=== PATIENT | male | born 1965 | race American Indian/Alaskan Native ===

== ENCOUNTER 2016-10-14 21:04 | Emergency (ER) | payer OTHER ==
[2016-10-14 21:20] VITALS: BP 143/94
[2016-10-14] MEDS ORDERED: TYLENOL PO ONE (21:52)
[2016-10-14] MEDS ORDERED: CLEOCIN IV ONE (21:52)
[2016-10-14] MEDS ORDERED: NACL 0.9% 1000 ML 1,000 ML IV ONE (21:52)
[2016-10-14] MEDS ORDERED: TORADOL IV ONE (21:52)
[2016-10-14] MEDS ORDERED: DECADRON IV ONE (21:52)
--- NOTE | 2016-10-14 21:52 | Emergency Department Report ---
HPI - General Chief Complaint: Allergic Reaction Time Seen by Provider: 10/14/16 21:46 - HPI HPI: This is a pleasant 51-year-old gentleman who indicates over the last approximately 24 hours he's had left-sided throat pain and difficulty swallowing. He indicates that he actually saw his dentist on Sunday for routine appointment. He was noted to have some upper gums swelling. He was given chlorhexidine rinse and spit for this. He indicates he has been using it as prescribed. Again he noted last night some increased discomfort in his left side of his throat and now extent the left lower jaw region as well. He was unaware that he had fever. He works night shifts and did work last night. He states he has had some fatigue. He indicates he is able to swallow secretions but is uncomfortable so he is choosing to spit them in a cup. Has sensation of feeling of increased edema is throughout however. He is not currently on any antibiotics. He denies prior history of this. ED Past Medical Hx - Past Medical History Previous Medical History?: No - Social History Smoking Status: Unknown if ever smoked - Medications Home Medications: Home Medications Medication Instructions Recorded Confirmed Last Taken Type Clindamycin [Clindamycin CAP] 300 mg PO Q6H #40 capsule 10/15/16 Unknown Rx ED Review of Systems ROS: Stated complaint: THROAT SWELLING Other details as noted in HPI Comment: All other systems reviewed and negative Constitutional: malaise. denies: chills, fever Eyes: denies: eye pain, eye discharge, vision change ENT: throat pain. denies: ear pain Respiratory: denies: cough, shortness of breath, wheezing Cardiovascular: denies: chest pain, palpitations Endocrine: no symptoms reported Gastrointestinal: denies: abdominal pain, nausea, diarrhea Genitourinary: denies: urgency, dysuria Musculoskeletal: denies: back pain, joint swelling, arthralgia Skin: denies: rash, lesions Neurological: denies: headache, weakness, paresthesias Psychiatric: denies: anxiety, depression Hematological/Lymphatic: denies: easy bleeding, easy bruising Physical Exam - Physical Exam Vital Signs: Vital Signs 10/14/16 21:15 Temperature 101.1 F H Pulse Rate 103 H Respiratory 18 Rate Blood Pressure 143/94 O2 Sat by Pulse 96 Oximetry General: General somewhat uncomfortable appearing noted to be febrile as well. Otherwise has accompanied his hand that he is spitting secretions. HEENT demonstrates no obvious trauma. Tympanic membranes bilaterally are unremarkable. Facial palpation is unremarkable. Oral examination temperature is moist mucous membranes. There is significant left tonsillar edema and erythema appreciated. No exudates are noted. No uvula involvement is noted. Neck examination demonstrates left-sided moderate anterior and mild submandibular adenopathy. No meningismus is noted. No tracheal deviation is appreciated. Chest is clear to auscultation with good air movement heart is regular no murmur or gallop noted abdomen is soft nontender no organomegaly no organomegaly is noted. Neck demonstrates no midline tenderness no paracervical tenderness or Lumbar tenderness is appreciated either. Extremities demonstrate equal distal pedal pulses throughout no pathologic edema is noted. Psych alert from here answering questions appropriately neurologically moving all extremities without difficulty speaking in a normal rate and tone. ED Course Vital Signs 10/14/16 21:15 Temperature 101.1 F H Pulse Rate 103 H Respiratory 18 Rate Blood Pressure 143/94 O2 Sat by Pulse 96 Oximetry - Reevaluation(s) Reevaluation #1: 10/15/16 00:05 Lab studies are noted. CT study is noted as well. No obvious abscess or phlegmon is appreciated this time. I did give patient IV antibiotics here. He did defervesce here as well. He is able to tolerate oral intake. I feel he is appropriate appropriate for home. I did give him strict instructions return if there is any acute worsening. He did get an injection of dexamethasone as well. ED Medical Decision Making - Lab Data Result diagrams: 10/14/16 22:13 10/14/16 22:13 - Radiology Data Radiology results: report reviewed, image reviewed No abscess or mass noted. There is slight swelling of the left tonsillar pillar. Critical care attestation.: If time is entered above; I have spent that time in minutes in the direct care of this critically ill patient, excluding procedure time. ED Disposition Clinical Impression: Acute tonsillitis Qualifiers: Pharyngitis/tonsillitis etiology: unspecified etiology Qualified Code(s): J03.90 - Acute tonsillitis, unspecified Disposition: DISCHARGED TO HOME OR SELFCARE Is pt being admited?: No Does the pt Need Aspirin: No Condition: Stable Instructions: Tonsillitis (ED) Additional Instructions: Take Tylenol as needed for fever. Consider dural lozenges or sprays as needed for throat discomfort. Drink plenty of fluids. Continue with chlorhexidine rinse and spit. Prescriptions: Clindamycin [Clindamycin CAP] 300 mg PO Q6H #40 capsule Forms: Work/School Release Form(ED) Time of Disposition: 00:03
[2016-10-14] MEDS ORDERED: NACL ONE (21:53)
[2016-10-14 22:48] LABS: Anion Gap 18 mmol/L; Blood Urea Nitrogen 12 mg/dL (9-20); Calcium 9.3 mg/dL (8.4-10.2); Carbon Dioxide 25 mmol/L (22-30); Chloride 102.5 mmol/L (98-107); Glucose 109 mg/dL (75-100); Potassium 4.5 mmol/L (3.6-5.0); Sodium 141 mmol/L (137-145)
[2016-10-14 22:54] LABS: Basophils % (Auto) 0.6 % (0.0-1.8); Eosinophils % (Auto) 0.4 % (0.0-4.3); Hematocrit 44.3 % (35.5-45.6); Hemoglobin 14.9 gm/dl (11.8-15.2); Mean Corpuscular HGB Conc 34 % (32-34); Mean Corpuscular Hemoglobin 28 pg (28-32); Mean Corpuscular Volume 83 fl (84-94); Platelet Count 172 K/mm3 (140-440); Red Blood Count 5.35 M/mm3 (3.65-5.03); Red Cell Distribution Width 15.6 % (13.2-15.2); White Blood Count 10.5 K/mm3 (4.5-11.0)
--- NOTE | 2016-10-14 23:35 | Cat Scan Report ---
FINAL REPORT PROCEDURE: CT NECK W CON TECHNIQUE: Computerized axial tomography of the soft tissue neck was performed following the IV injection of iodinated nonionic contrast. HISTORY: L tonsilar abscess? COMPARISON: No prior studies are available for comparison. FINDINGS: Left tonsillar pillar is slightly enlarged. There is no mass or abscess. There is no airway compromise. Skull and scalp: Normal. Paranasal sinuses: Normal. Nasopharynx: Normal . Oral cavity: Normal . Epiglottis/vallecula: Normal . Larynx/pyriform sinuses: Normal . Thyroid gland: Normal . Lymph nodes: There are borderline enlarged submandibular and cervical lymph nodes. These are nonspecific and could be reactive.. Salivary glands: Normal . Upper thorax: Normal . IMPRESSION: There is no abscess or mass. There is slight swelling of the left tonsillar pillar.
== END 2016-10-15 01:07 | disposition home or self-care (01) ==
LOC: ED 21:04
DX: J03.90 Acute tonsillitis, unspecified (principal)
CPT/HCPCS: 36415; 70491; 80048; 85025; 96361; 96374; 96375; 99284; J1100; J1885; J7030; Q9967

== ENCOUNTER 2017-03-02 18:41 | Emergency (ER) | payer OTHER ==
--- NOTE | 2017-03-02 22:51 | Emergency Department Report ---
ED Extremity Problem HPI - General Chief complaint: Extremity Injury, Upper Stated complaint: LEFT HAND PAIN Time Seen by Provider: 03/02/17 22:34 Source: patient, family Mode of arrival: Ambulatory Limitations: No Limitations - History of Present Illness Initial comments: Patient reports that he is having left elbow pain that radiated down his left hand. He said it started on Sunday. Patient said that he thinks his gout flare up. He denies any injury. Patient said that he has been eating and food that he is not supposed to eat such his red meat and drinking beer. He said the pain is throbbing to his elbow and its radiated down to his hand. Pain is 10 out of 10. He states that he took [id number] medication but it's not helping. He said he had similar pain but got flare up in the past and he had gout flareup in all his joints in the past. Denies any fever or chills or numbness or tingling to extremities. Denies any loss of sensation to his extremities. Patient medical history is gout and he said he is not on any medication. He does have a primary care physician whom he has not seen in a while. Pain is worse with movement and touch better with rest. MD Complaint: extremity pain, joint swelling, joint paint Onset/Timin -: days(s) Location: left, upper extremity, elbow (radiating down to left hand) History of Same: Yes -: Yes arthralgia, No fever, No associated dyspnea, No associated chest pain Radiation: distal Severity scale (0 -10): 10 Quality: other (Throbbing) Consistency: constant Improves with: immobilization, rest Worsens with: palpation Associated Symptoms: arthralgias. denies: chest pain, shortness of breath, fever, myalgias, rash - Related Data Previous Rx's Medication Instructions Recorded Last Taken Type Clindamycin [Clindamycin CAP] 300 mg PO Q6H #40 capsule 10/15/16 Unknown Rx HYDROcodone/APAP 5-325 [[place] 1 each PO Q6HR PRN #12 tablet 03/02/17 Unknown Rx 5/325] Naproxen [Naprosyn TAB] 500 mg PO BID PRN #12 tablet 03/02/17 Unknown Rx methylPREDNISolone [Medrol] 4 mg PO QAM #1 tab.ds.pk 03/02/17 Unknown Rx Allergies Allergy/AdvReac Type Severity Reaction Status Date / Time No Known Allergies Allergy Verified 03/02/17 18:45 ED Review of Systems ROS: Stated complaint: LEFT HAND PAIN Other details as noted in HPI Comment: All other systems reviewed and negative Constitutional: no symptoms reported Respiratory: no symptoms reported Cardiovascular: denies: chest pain, palpitations, edema, syncope Gastrointestinal: denies: abdominal pain, nausea, vomiting, diarrhea, constipation Musculoskeletal: joint swelling, arthralgia. denies: back pain, myalgia Skin: denies: rash Neurological: denies: headache, weakness, numbness, paresthesias, confusion, abnormal gait, vertigo ED Past Medical Hx - Past Medical History Previous Medical History?: Yes Additional medical history: gout - Surgical History Past Surgical History?: No - Family History Family history: hypertension - Social History Smoking Status: Never Smoker Substance Use Type: Alcohol Other Social History: Single - Medications Home Medications: Home Medications Medication Instructions Recorded Confirmed Last Taken Type Clindamycin [Clindamycin CAP] 300 mg PO Q6H #40 capsule 10/15/16 Unknown Rx HYDROcodone/APAP 5-325 [[place] 1 each PO Q6HR PRN #12 tablet 03/02/17 Unknown Rx 5/325] Naproxen [Naprosyn TAB] 500 mg PO BID PRN #12 tablet 03/02/17 Unknown Rx methylPREDNISolone [Medrol] 4 mg PO QAM #1 tab.ds.pk 03/02/17 Unknown Rx ED Physical Exam - General Limitations: No Limitations General appearance: alert, in no apparent distress - Head Head exam: Present: atraumatic, normocephalic, normal inspection - Eye Eye exam: Present: normal appearance, PERRL, EOMI Pupils: Present: normal accommodation - Neck Neck exam: Present: normal inspection, full ROM. Absent: tenderness, meningismus, lymphadenopathy - Respiratory Respiratory exam: Present: normal lung sounds bilaterally. Absent: respiratory distress, chest wall tenderness - Cardiovascular Cardiovascular Exam: Present: regular rate, normal rhythm, normal heart sounds. Absent: systolic murmur, diastolic murmur - GI/Abdominal GI/Abdominal exam: Present: soft, normal bowel sounds. Absent: distended, tenderness, guarding, rebound, rigid - Extremities Exam Extremities exam: Present: full ROM, tenderness (left elbow), normal capillary refill, joint swelling (left elbow and left hand), other (no clubbing or cyanosis. +2 pulses to all extremities. No neurovascular compromise to extremities). Absent: normal inspection, pedal edema, calf tenderness - Expanded Upper Extremity Exam Left General: Absent: normal inspection, abrasion, nail injury (#), foreign body, amputation, avulsion Shoulder Exam: Present: normal inspection, full ROM. Absent: tenderness, abrasion, laceration, ecchymosis, deformity, crepidus, dislocation, erythema, tenderness over AC joint Upper Arm exam: Present: normal inspection, full ROM. Absent: tenderness, swelling, abrasion, laceration, ecchymosis, deformity, crepidus, dislocation, erythema Elbow exam: Present: full ROM (patient with full range of motion to left elbow but reports painful with flexion and extension), tenderness, swelling. Absent: normal inspection, abrasion, laceration, ecchymosis, deformity, crepidus, dislocation, erythema, effusion, pain w/ pronation/supination, tenderness over radial head Forearm Wrist exam: Present: normal inspection, full ROM. Absent: tenderness, swelling, abrasion, laceration, ecchymosis, deformity, crepidus, dislocation, erythema, tenderness over anatomical snuff box, pain with axial thumb loading Hand Wrist exam: Present: full ROM, tenderness (mild tenderness to the left dorsal aspect of hand), swelling (mild swelling to left hand). Absent: normal inspection, abrasion, laceration, ecchymosis, deformity, crepidus, dislocation, erythema, amputation, nail avulsion, subungual hematoma Neuro motor exam: Present: wrist extension intact, thumb opposition intact, thumb IP flexion intact, thumb adduction intact, fingers 2-5 abduction intact Neurosensory exam: Present: 2-point discrimination, radial nerve intact, ulnar nerve intact, median nerve intact Vascular: Present: normal capillary refill, radial pulse, brachial pulse, ulnar pulse. Absent: vascular compromise, Pallo, pulse deficit radial art, pulse deficit ulnar art, pulse deficit brachial art - Back Exam Back exam: Present: normal inspection, full ROM. Absent: tenderness, CVA tenderness (R), CVA tenderness (L), muscle spasm, paraspinal tenderness, vertebral tenderness, rash noted - Neurological Exam Neurological exam: Present: alert, oriented X3, normal gait, reflexes normal. Absent: motor sensory deficit - Psychiatric Psychiatric exam: Present: normal affect, normal mood - Skin Skin exam: Present: warm, dry, intact, normal color. Absent: rash, erythema ED Course Vital Signs 03/02/17 18:45 Temperature 98.4 F Pulse Rate 74 Respiratory 18 Rate Blood Pressure 163/89 O2 Sat by Pulse 97 Oximetry - Reevaluation(s) Reevaluation #1: 03/02/17 23:31 Pt with gout flareup and he received Toradol 60 mg IM, Decadron 10 mg IM and Percocet 5/325 mg 2 tablets by mouth in emergency room which relieved his pain. 03/02/17 23:31 ED Medical Decision Making - Medical Decision Making ED course: Patient with gout flareup that started 4 days ago after eating red meat and drinking beer. Patient had similar episodes several times to multiple joints. Physical findings for swelling to left elbow with tenderness to palpate in painful with flexion and extension. He also has some swelling to his left hand. Patient is neurovascular intact with normal pulses to extremities. Pt has gout but is not taking any medication for gout and is noncompliant with diet for gout prevention. She was given Percocet 5/325 2 tablets by mouth, Toradol 60 mg IM and Decadron 10 mg IM and emergency room for treatment of acute gout and this relieved this pain down to 2 out of 10. Constipation diagnosis and treatment plan and remind them of diet that is low in Purine. He voiced understanding and discharged home with his family in stable condition with prescription for Collins, naproxen and Medrol Dosepak. Critical care attestation.: If time is entered above; I have spent that time in minutes in the direct care of this critically ill patient, excluding procedure time. ED Disposition Clinical Impression: Arthralgia of multiple sites Acute gout Qualifiers: Gout site: elbow Gout etiology: unspecified cause Laterality: left Qualified Code(s): M10.9 - Gout, unspecified Disposition: - TO HOME OR SELFCARE Is pt being admited?: No Does the pt Need Aspirin: No Condition: Stable Instructions: Acute Gouty Arthritis (ED), Low Purine Diet (ED), Arthralgia (ED) Additional Instructions: Please see discharge instruction on low purine food to prevent gout flare up. Please state medication as prescribed. Do not take Collins while driving or operating heavy machinery as this medication causes drowsiness See your primary care physician in 3-5 days Prescriptions: HYDROcodone/APAP 5-325 [Collins 5/325] 1 each PO Q6HR PRN #12 tablet PRN Reason: Pain methylPREDNISolone [Medrol] 4 mg PO QAM #1 tab.ds.pk Naproxen [Naprosyn TAB] 500 mg PO BID PRN #12 tablet PRN Reason: Pain Referrals: PRIMARY CARE, [Primary Care Provider] - 03/05/17 Forms: Accompanied Note, Work/School Release Form(ED)
[2017-03-02] MEDS ORDERED: PERCOCET 5/325 PO ONE (22:53)
[2017-03-02] MEDS ORDERED: DECADRON IM ONE (22:53)
[2017-03-02] MEDS ORDERED: TORADOL IM ONE (22:53)
[2017-03-03 00:06] VITALS: BP 127/82
== END 2017-03-03 00:06 | disposition home or self-care (01) ==
LOC: ED 18:41
DX: M10.9 Gout, unspecified (principal); M25.50 Pain in unspecified joint
CPT/HCPCS: 96372; 99282; J1100; J1885

== ENCOUNTER 2017-03-12 04:13 | Emergency (ER) | payer OTHER ==
[2017-03-12 05:05] VITALS: BP 155/96
[2017-03-12] MEDS ORDERED: MOTRIN PO ONE (05:23)
--- NOTE | 2017-03-12 05:52 | XRay Report ---
FINAL REPORT EXAM: XR WRIST 2V LT HISTORY: left wrist swelling COMPARISONS: None. FINDINGS: AP and lateral views left wrist Soft tissue swelling about the left carpus. No bone lesion, periosteal reaction, or fracture. No deformity or gross malalignment. IMPRESSION: Soft tissue swelling about the left wrist without evident fracture or gross malalignment. Consider additional imaging for worsening/persistent symptoms.
[2017-03-12] MEDS ORDERED: TORADOL IM ONE (10:59)
--- NOTE | 2017-03-12 11:06 | Emergency Department Report ---
Upper Extremity - HPI Chief Complaint: Extremity Injury, Upper Stated Complaint: LEFT WRIST PAIN Time Seen by Provider: 03/12/17 10:40 Upper Extremity: Left Wrist, Left Hand Occurred When: >5 Days Mechanism: Other (known to have guoty arthritis) Severity: moderate Symptoms: Yes Pain with Movement, Yes Limited Range of Movement, Yes Weakness, Yes Swelling, No Deformity, No Numbness, No Bruising/Ecchymosis, No Laceration or Abrasion Other History: Pt has used Motrin with out any relief of his symptoms ED Review of Systems ROS: Stated complaint: LEFT WRIST PAIN Other details as noted in HPI Comment: All other systems reviewed and negative Constitutional: denies: chills, diaphoresis, fever, malaise Eyes: denies: eye pain, eye discharge ENT: denies: ear pain, throat pain, dental pain, hearing loss, epistaxis, congestion Respiratory: denies: no symptoms reported, cough, shortness of breath, SOB with exertion Cardiovascular: denies: chest pain, palpitations, dyspnea on exertion, edema, syncope Endocrine: no symptoms reported Gastrointestinal: denies: abdominal pain, nausea, vomiting, diarrhea, hematemesis, melena Genitourinary: denies: dysuria, frequency, hematuria Musculoskeletal: joint swelling (left wrist joint and left hand), arthralgia Skin: denies: lesions, pruritus Neurological: denies: headache, weakness, numbness, paresthesias, confusion ED Past Medical Hx - Past Medical History Additional medical history: gout - Surgical History Past Surgical History?: No - Social History Smoking Status: Never Smoker Substance Use Type: None - Medications Home Medications: Home Medications Medication Instructions Recorded Confirmed Last Taken Type Clindamycin [Clindamycin CAP] 300 mg PO Q6H #40 capsule 10/15/16 Unknown Rx HYDROcodone/APAP 5-325 [[place] 1 each PO Q6HR PRN #12 tablet 03/02/17 Unknown Rx 5/325] Naproxen [Naprosyn TAB] 500 mg PO BID PRN #12 tablet 03/02/17 Unknown Rx methylPREDNISolone [Medrol] 4 mg PO QAM #1 tab.ds.pk 03/02/17 Unknown Rx Colchicine 0.6 mg PO BID #14 tablet 03/12/17 Unknown Rx Ibuprofen [Motrin 800 MG tab] 800 mg PO Q8HR PRN #30 tablet 03/12/17 Unknown Rx methylPREDNISolone [Medrol] 4 mg PO DAILY #1 packet 03/12/17 Unknown Rx Upper Extremity Exam - Exam General: Vital signs noted.. Alert and acting appropriately. This patient is in mild to moderate distress Head and Torso: No HEENT Abnormality, No Neck Tenderness, No Chest/Lungs Abnormality, No Abdominal Tenderness, No Back Tenderness Shoulder Exam: No Shoulder Tenderness, No Clavicle Tenderness, No Normal Range of Motion in Shoulder, No Shoulder Deformity, No AC Joint Tenderness Arm Exam: No Arm/Humerus Tenderness, No Arm Deformity Elbow: No Elbow Tenderness, No Normal Range of Motion in Elbow, No Elbow Deformity Forearm: No Forearm Tenderness, No Forearm Deformity, No Pain with Pronation, No Pain with Supination Wrist: Yes Wrist Tenderness (left wrist), Yes Snuffbox Tenderness, Yes Pain with Axial Thumb Compression, No Normal ROM in Wrist, No Wrist Deformity Hand: Yes Hand Tenderness (dorsum of left hand), No Hand Deformity, No Digit Tenderness, No Normal ROM in Digit(s), No Digit(s) Deformity CMS Exam: Yes Normal Distal Pulses, Yes Normal Capillary Refill, Yes Normal Distal Sensation, No Broken Skin ED Course Vital Signs 03/12/17 05:04 Temperature 98.1 F Pulse Rate 74 Respiratory 18 Rate Blood Pressure 155/96 O2 Sat by Pulse 98 Oximetry - Reevaluation(s) Reevaluation #1: 03/12/17 11:28 slightly improved Critical Care Time: No Critical care attestation.: If time is entered above; I have spent that time in minutes in the direct care of this critically ill patient, excluding procedure time. ED Disposition Clinical Impression: Gouty arthritis Disposition: TO HOME OR SELFCARE Is pt being admited?: No Does the pt Need Aspirin: No Condition: Stable Instructions: Acute Gouty Arthritis (ED) Additional Instructions: Follow up with your PCP in 2-3 days Prescriptions: Colchicine 0.6 mg PO BID #14 tablet Ibuprofen [Motrin 800 MG tab] 800 mg PO Q8HR PRN #30 tablet PRN Reason: Pain methylPREDNISolone [Medrol] 4 mg PO DAILY #1 packet Referrals: PRIMARY CARE, [Primary Care Provider] - 3-5 Days BENNIE KIM MD [Staff Physician] - 3-5 Days (Call office for an appointment) Time of Disposition: 11:30
[2017-03-12] MEDS ORDERED: COLCRYS PO ONE (11:30)
== END 2017-03-12 12:00 | disposition home or self-care (01) ==
LOC: ED 04:13
DX: M10.9 Gout, unspecified (principal)
CPT/HCPCS: 73100; 96372; 99283; J1885; J2930

== ENCOUNTER 2017-10-09 12:00 | Emergency (ER) | payer OTHER ==
[2017-10-09 12:30] VITALS: BP 185/121
--- NOTE | 2017-10-09 13:48 | Emergency Department Report ---
HPI - General Chief Complaint: Extremity Injury, Upper Time Seen by Provider: 10/09/17 13:43 - HPI HPI: patient c/o pain at mcp joint, swelling and redness, for two after eating ribs at a bbq, has a history of gout. ED Past Medical Hx - Past Medical History Previous Medical History?: Yes Hx Hypertension: No Hx CVA: No Additional medical history: gout - Surgical History Past Surgical History?: No - Social History Smoking Status: Never Smoker Substance Use Type: Alcohol - Medications Home Medications: Home Medications Medication Instructions Recorded Confirmed Last Taken Type Clindamycin [Clindamycin CAP] 300 mg PO Q6H #40 capsule 10/15/16 Unknown Rx HYDROcodone/APAP 5-325 [[place] 1 each PO Q6HR PRN #12 tablet 03/02/17 Unknown Rx 5/325] Naproxen [Naprosyn TAB] 500 mg PO BID PRN #12 tablet 03/02/17 Unknown Rx methylPREDNISolone [Medrol] 4 mg PO QAM #1 tab.ds.pk 03/02/17 Unknown Rx Ibuprofen [Motrin 800 MG tab] 800 mg PO Q8HR PRN #30 tablet 03/12/17 Unknown Rx Colchicine 0.6 mg PO BID #14 tablet 10/09/17 Unknown Rx methylPREDNISolone [Medrol Dose 4 mg PO DAILY #1 packet 10/09/17 Unknown Rx Ezequiel] ED Review of Systems ROS: Stated complaint: RIGHT ARM PAIN/SWELLING Other details as noted in HPI Comment: All other systems reviewed and negative Musculoskeletal: joint swelling, arthralgia, other Physical Exam - Physical Exam Vital Signs: Vital Signs 10/09/17 12:27 Temperature 98.1 F Pulse Rate 66 Respiratory 20 Rate Blood Pressure 185/121 O2 Sat by Pulse 97 Oximetry Physical Exam: GENERAL APPEARANCE: Well developed, well nourished, alert and cooperative, and appears to be in no acute distress. HEAD: normocephalic. EYES: PERRL, EOMI. Fundi normal, vision is grossly intact. EARS: External auditory canals and tympanic membranes clear, hearing grossly intact. NOSE: No nasal discharge. THROAT: Oral cavity and pharynx normal. No inflammation, swelling, exudate, or lesions. Teeth and gingiva in good general condition. NECK: Neck supple, non-tender without lymphadenopathy, masses or thyromegaly. CARDIAC: Normal S1 and S2. No S3, S4 or murmurs. Rhythm is regular. There is no peripheral edema, cyanosis or pallor. Extremities are warm and well perfused. Capillary refill is less than 2 seconds. No carotid bruits. LUNGS: Clear to auscultation and percussion without rales, rhonchi, wheezing or diminished breath sounds. ABDOMEN: Positive bowel sounds. Soft, nondistended, nontender. No guarding or rebound. No masses. MUSKULOSKELETAL: swelling, tenderness at mcp joint, mild redness, no compartment syndrome. ED Course Vital Signs 10/09/17 12:27 Temperature 98.1 F Pulse Rate 66 Respiratory 20 Rate Blood Pressure 185/121 O2 Sat by Pulse 97 Oximetry Critical care attestation.: If time is entered above; I have spent that time in minutes in the direct care of this critically ill patient, excluding procedure time. ED Disposition Clinical Impression: Acute gouty arthritis Disposition: DC-01 TO HOME OR SELFCARE Is pt being admited?: No Does the pt Need Aspirin: No Condition: Stable Prescriptions: Colchicine 0.6 mg PO BID #14 tablet methylPREDNISolone [Medrol Dose Ezequiel] 4 mg PO DAILY #1 packet Referrals: PRIMARY CARE, [Primary Care Provider] - 3-5 Days
== END 2017-10-09 14:01 | disposition home or self-care (01) ==
LOC: ED 12:00
DX: M10.021 Idiopathic gout, right elbow (principal)
CPT/HCPCS: 99282

== ENCOUNTER 2018-06-23 12:07 | Emergency (ER) | payer OTHER ==
[2018-06-23 12:12] VITALS: BP 136/71
[2018-06-23] MEDS ORDERED: IBUPROFEN PO ONE (12:45)
[2018-06-23] MEDS ORDERED: DECADRON IM ONE (12:45)
--- NOTE | 2018-06-23 12:52 | Emergency Department Report ---
ED Lower Extremity HPI - General Chief Complaint: Extremity Injury, Lower Stated Complaint: GOUT Time Seen by Provider: 06/23/18 12:43 Source: patient Mode of arrival: Ambulatory Limitations: No Limitations - History of Present Illness Initial Comments: This is a 53-year-old male nontoxic, well nourished in appearance, no acute signs of distress presents to the ED with c/o of right knee and ankle pain. Patient stated that he ahs history of gout and symptoms are similar to gout flareup. Patient denies any trauma. Patient denies any numbness, tingling, fever, chills, nausea, vomiting, chest pain, shortness of breath, headache, stiff neck. Patient denies any joint swelling or joint redness. Patient denies decreased range of motion. Patient stated has decreased gait due to pain. Patient denies any allergies. MD Complaint: knee injury, ankle injury Injury: Knee: Right, Ankle: Right Severity: mild Severity scale (0 -10): 8 Improves With: immobilization Worsens With: weight bearing, movement, palpation Associated Symptoms: swelling, able to partially bear weight, ambulatory. denies: snap/pop sensation, numbness, tingling, unable to bear weight - Related Data Previous Rx's Medication Instructions Recorded Last Taken Type Clindamycin [Clindamycin CAP] 300 mg PO Q6H #40 capsule 10/15/16 Unknown Rx HYDROcodone/APAP 5-325 [[place] 1 each PO Q6HR PRN #12 tablet 03/02/17 Unknown Rx 5/325] Naproxen [Naprosyn TAB] 500 mg PO BID PRN #12 tablet 03/02/17 Unknown Rx methylPREDNISolone [Medrol] 4 mg PO QAM #1 tab.ds.pk 03/02/17 Unknown Rx Ibuprofen [Motrin 800 MG tab] 800 mg PO Q8HR PRN #30 tablet 03/12/17 Unknown Rx Amlodipine Besylate [Norvasc] 10 mg PO DAILY #30 tablet 10/09/17 Unknown Rx methylPREDNISolone [Medrol Dose 4 mg PO DAILY #1 packet 10/09/17 Unknown Rx Ezequiel] Colchicine 0.6 mg PO BID #14 tablet 04/29/18 Unknown Rx Ibuprofen [Motrin] 800 mg PO Q8HR PRN #15 tablet 04/29/18 Unknown Rx predniSONE [Prednisone] 10 mg PO QAM 6 Days #1 tab.ds.pk 04/29/18 Unknown Rx Colchicine 0.6 mg PO BID #14 tablet 06/23/18 Unknown Rx Ibuprofen [Motrin] 600 mg PO Q8H PRN #20 tablet 06/23/18 Unknown Rx Prednisone [predniSONE 10 mg 10 mg PO .TAPER #1 tab.ds.pk 06/23/18 Unknown Rx (6-Day Pack, 21 Tabs)] Allergies Allergy/AdvReac Type Severity Reaction Status Date / Time No Known Allergies Allergy Verified 03/02/17 18:45 ED Review of Systems ROS: Stated complaint: GOUT Other details as noted in HPI Constitutional: denies: chills, fever Eyes: denies: eye pain, eye discharge, vision change ENT: denies: ear pain, throat pain Respiratory: denies: cough, shortness of breath, wheezing Cardiovascular: denies: chest pain, palpitations Endocrine: no symptoms reported Gastrointestinal: denies: abdominal pain, nausea, diarrhea Genitourinary: denies: urgency, dysuria Musculoskeletal: arthralgia. denies: back pain, joint swelling Skin: denies: rash, lesions Neurological: denies: headache, weakness, paresthesias Psychiatric: denies: anxiety, depression Hematological/Lymphatic: denies: easy bleeding, easy bruising ED Past Medical Hx - Past Medical History Previous Medical History?: Yes Hx Hypertension: No Hx CVA: No Hx Arthritis: Yes (GOUT) Additional medical history: gout - Surgical History Past Surgical History?: No - Social History Smoking Status: Never Smoker Substance Use Type: None - Medications Home Medications: Home Medications Medication Instructions Recorded Confirmed Last Taken Type Clindamycin [Clindamycin CAP] 300 mg PO Q6H #40 capsule 10/15/16 Unknown Rx HYDROcodone/APAP 5-325 [[place] 1 each PO Q6HR PRN #12 tablet 03/02/17 Unknown Rx 5/325] Naproxen [Naprosyn TAB] 500 mg PO BID PRN #12 tablet 03/02/17 Unknown Rx methylPREDNISolone [Medrol] 4 mg PO QAM #1 tab.ds.pk 03/02/17 Unknown Rx Ibuprofen [Motrin 800 MG tab] 800 mg PO Q8HR PRN #30 tablet 03/12/17 Unknown Rx Amlodipine Besylate [Norvasc] 10 mg PO DAILY #30 tablet 10/09/17 Unknown Rx methylPREDNISolone [Medrol Dose 4 mg PO DAILY #1 packet 10/09/17 Unknown Rx Ezequiel] Colchicine 0.6 mg PO BID #14 tablet 04/29/18 Unknown Rx Ibuprofen [Motrin] 800 mg PO Q8HR PRN #15 tablet 04/29/18 Unknown Rx predniSONE [Prednisone] 10 mg PO QAM 6 Days #1 tab.ds.pk 04/29/18 Unknown Rx Colchicine 0.6 mg PO BID #14 tablet 06/23/18 Unknown Rx Ibuprofen [Motrin] 600 mg PO Q8H PRN #20 tablet 06/23/18 Unknown Rx Prednisone [predniSONE 10 mg 10 mg PO .TAPER #1 tab.ds.pk 06/23/18 Unknown Rx (6-Day Pack, 21 Tabs)] ED Physical Exam - General Limitations: No Limitations General appearance: alert, in no apparent distress - Head Head exam: Present: atraumatic, normocephalic - Eye Eye exam: Present: normal appearance - Neck Neck exam: Present: normal inspection, full ROM - Extremities Exam Extremities exam: Present: normal inspection, full ROM, tenderness, normal capillary refill, joint swelling. Absent: calf tenderness - Expanded Lower Extremity Exam Right Hip exam: Present: normal inspection, full ROM Upper Leg exam: Present: normal inspection, full ROM Knee exam: Present: normal inspection, full ROM, tenderness, swelling, full knee extension. Absent: abrasion, laceration, ecchymosis, deformity, crepidus, dislocation, erythema, effusion, pain w/ pronation/supination, posterior draw sign, pain/laxity with valgus, pain/laxity with varus Lower Leg exam: Present: normal inspection, full ROM Ankle exam: Present: normal inspection, full ROM, tenderness, swelling. Absent: abrasion, laceration, ecchymosis, deformity, crepidus, dislocation, erythema, anterior draw sign Foot/Toe exam: Present: normal inspection, full ROM Neuro vascular tendon exam: Present: no vascular compromise Gait: Positive: observed and limited by pain - Back Exam Back exam: Present: normal inspection, full ROM - Neurological Exam Neurological exam: Present: alert, oriented X3 - Psychiatric Psychiatric exam: Present: normal affect, normal mood - Skin Skin exam: Present: warm, dry, intact, normal color. Absent: rash ED Course Vital Signs 06/23/18 12:10 Temperature 97.8 F Pulse Rate 99 H Respiratory 18 Rate Blood Pressure 136/71 O2 Sat by Pulse 97 Oximetry - Reevaluation(s) Reevaluation #1: 06/23/18 12:53 Patient is speaking in full sentences with no signs of distress noted. ED Lower Extremity MDM - Medical Decision Making This is a 53-year-old male that presents with gout flareup. Patient is stable and was examined by me. No ecchymosis. no joint redness. Not warm to touch. No signs of cellulites present. Patient was instructed to RICE therapy. Patient received Motrin and Decadron for pain. Patient is discharged with Motrin, prednisone, and colchicine. At time of discharge, the patient does not seem toxic or ill in appearance. No acute signs of distress noted. Patient agrees to discharge treatment plan of care. No further questions noted by the patient. Critical care attestation.: If time is entered above; I have spent that time in minutes in the direct care of this critically ill patient, excluding procedure time. ED Disposition Clinical Impression: Gout Qualifiers: Gout site: ankle Gout etiology: unspecified cause Chronicity: acute Laterality: right Qualified Code(s): M10.9 - Gout, unspecified Disposition: DC-01 TO HOME OR SELFCARE Is pt being admited?: No Does the pt Need Aspirin: No Condition: Stable Instructions: Acute Gouty Arthritis (ED) Additional Instructions: Follow-up with a orthopedic doctor in 3-5 days or if symptoms worsen and continue return to emergency room as soon as possible. Prescriptions: Colchicine 0.6 mg PO BID #14 tablet Ibuprofen [Motrin] 600 mg PO Q8H PRN #20 tablet PRN Reason: Pain Prednisone [predniSONE 10 mg (6-Day Pack, 21 Tabs)] 10 mg PO .TAPER #1 tab.ds.pk Referrals: PRIMARY CAREMD [Primary Care Provider] - 3-5 Days HOLLIE HOUSER MD [Staff Physician] - 3-5 Days [facility] [Outside] - 3-5 Days Forms: Work/School Release Form(ED)
== END 2018-06-23 13:17 | disposition home or self-care (01) ==
LOC: ED 12:07
DX: M10.9 Gout, unspecified (principal)
CPT/HCPCS: 96372; 99282; J1100

== ENCOUNTER 2019-06-06 18:47 | Emergency (ER) | payer OTHER ==
[2019-06-06] MEDS ORDERED: ACETAMINOPHEN W/CODEINE 300-30 MG TAB PO ONE (21:56)
--- NOTE | 2019-06-06 21:56 | Emergency Department Report ---
ED Extremity Problem HPI - General Chief complaint: Extremity Injury, Lower Stated complaint: GOUT LEFT LEG Time Seen by Provider: 06/06/19 21:50 Source: patient Mode of arrival: Ambulatory Limitations: No Limitations - History of Present Illness Initial comments: pt is a 54 yo male who presents to the ED with c/o acute gout flare in the left knee that began yesterday. he states he has pain and edema to the knee. he denies any fall or injury. he denies any numbness or weakness. no allergies to meds. he states he typically gets gout flares in the elbows and knees. - Related Data Previous Rx's Medication Instructions Recorded Last Taken Type Clindamycin [Clindamycin CAP] 300 mg PO Q6H #40 capsule 10/15/16 Unknown Rx HYDROcodone/APAP 5-325 [[place] 1 each PO Q6HR PRN #12 tablet 03/02/17 Unknown Rx 5/325] Naproxen [Naprosyn TAB] 500 mg PO BID PRN #12 tablet 03/02/17 Unknown Rx methylPREDNISolone [Medrol] 4 mg PO QAM #1 tab.ds.pk 03/02/17 Unknown Rx Ibuprofen [Motrin 800 MG tab] 800 mg PO Q8HR PRN #30 tablet 03/12/17 Unknown Rx Amlodipine Besylate [Norvasc] 10 mg PO DAILY #30 tablet 10/09/17 Unknown Rx methylPREDNISolone [Medrol Dose 4 mg PO DAILY #1 packet 10/09/17 Unknown Rx Ezequiel] Colchicine 0.6 mg PO BID #14 tablet 04/29/18 Unknown Rx Ibuprofen [Motrin] 800 mg PO Q8HR PRN #15 tablet 04/29/18 Unknown Rx predniSONE [Prednisone] 10 mg PO QAM 6 Days #1 tab.ds.pk 04/29/18 Unknown Rx Colchicine 0.6 mg PO BID #14 tablet 06/23/18 Unknown Rx Ibuprofen [Motrin] 600 mg PO Q8H PRN #20 tablet 06/23/18 Unknown Rx Colchicine 0.6 mg PO Q2HR #14 capsule 10/18/18 Unknown Rx predniSONE [Deltasone] 50 mg PO QDAY #5 tab 10/18/18 Unknown Rx traMADoL [Ultram] 50 mg PO Q6HR PRN #14 tablet 10/18/18 Unknown Rx Acetaminophen/Codeine [Tylenol 1 tab PO Q6H PRN #10 tab 06/06/19 Unknown Rx /Codeine # 3 tab] Colchicine 0.6 mg PO ONCE 1 Days #3 capsule 06/06/19 Unknown Rx Indomethacin 50 mg PO TID 7 Days #21 capsule 06/06/19 Unknown Rx Prednisone [predniSONE 10 mg 10 mg PO .TAPER #1 tab.ds.pk 06/06/19 Unknown Rx (6-Day Pack, 21 Tabs)] Allergies Allergy/AdvReac Type Severity Reaction Status Date / Time No Known Allergies Allergy Verified 10/18/18 16:58 ED Review of Systems ROS: Stated complaint: GOUT LEFT LEG Other details as noted in HPI Comment: All other systems reviewed and negative ED Past Medical Hx - Past Medical History Hx Hypertension: No Hx CVA: No Hx Arthritis: Yes (GOUT) Additional medical history: gout - Social History Smoking Status: Never Smoker Substance Use Type: Alcohol - Medications Home Medications: Home Medications Medication Instructions Recorded Confirmed Last Taken Type Clindamycin [Clindamycin CAP] 300 mg PO Q6H #40 capsule 10/15/16 Unknown Rx HYDROcodone/APAP 5-325 [[place] 1 each PO Q6HR PRN #12 tablet 03/02/17 Unknown Rx 5/325] Naproxen [Naprosyn TAB] 500 mg PO BID PRN #12 tablet 03/02/17 Unknown Rx methylPREDNISolone [Medrol] 4 mg PO QAM #1 tab.ds.pk 03/02/17 Unknown Rx Ibuprofen [Motrin 800 MG tab] 800 mg PO Q8HR PRN #30 tablet 03/12/17 Unknown Rx Amlodipine Besylate [Norvasc] 10 mg PO DAILY #30 tablet 10/09/17 Unknown Rx methylPREDNISolone [Medrol Dose 4 mg PO DAILY #1 packet 10/09/17 Unknown Rx Ezequiel] Colchicine 0.6 mg PO BID #14 tablet 04/29/18 Unknown Rx Ibuprofen [Motrin] 800 mg PO Q8HR PRN #15 tablet 04/29/18 Unknown Rx predniSONE [Prednisone] 10 mg PO QAM 6 Days #1 tab.ds.pk 04/29/18 Unknown Rx Colchicine 0.6 mg PO BID #14 tablet 06/23/18 Unknown Rx Ibuprofen [Motrin] 600 mg PO Q8H PRN #20 tablet 06/23/18 Unknown Rx Colchicine 0.6 mg PO Q2HR #14 capsule 10/18/18 Unknown Rx predniSONE [Deltasone] 50 mg PO QDAY #5 tab 10/18/18 Unknown Rx traMADoL [Ultram] 50 mg PO Q6HR PRN #14 tablet 10/18/18 Unknown Rx Acetaminophen/Codeine [Tylenol 1 tab PO Q6H PRN #10 tab 06/06/19 Unknown Rx /Codeine # 3 tab] Colchicine 0.6 mg PO ONCE 1 Days #3 capsule 06/06/19 Unknown Rx Indomethacin 50 mg PO TID 7 Days #21 capsule 06/06/19 Unknown Rx Prednisone [predniSONE 10 mg 10 mg PO .TAPER #1 tab.ds.pk 06/06/19 Unknown Rx (6-Day Pack, 21 Tabs)] ED Physical Exam - General Limitations: No Limitations General appearance: alert, in no apparent distress - Head Head exam: Present: atraumatic, normocephalic - Eye Eye exam: Present: normal appearance - ENT ENT exam: Present: mucous membranes moist - Extremities Exam Extremities exam: Present: other (edema and mildly increased warmth present to the left knee, no erythema, FROM of the left knee, no bony TTP, neurovascularly intact) - Neurological Exam Neurological exam: Present: alert, oriented X3 - Psychiatric Psychiatric exam: Present: normal affect, normal mood - Skin Skin exam: Present: warm, dry, intact ED Course Vital Signs 06/06/19 06/06/19 19:52 22:16 Temperature 98.9 F Pulse Rate 98 H 99 H Respiratory 20 17 Rate Blood Pressure 142/92 Blood Pressure 135/85 [Left] O2 Sat by Pulse 97 94 Oximetry ED Medical Decision Making - Medical Decision Making pt is a 54 yo male who presents to the ED with c/o acute gout flare in the left knee that began yesterday. he states he has pain and edema to the knee. he denies any fall or injury. he denies any numbness or weakness. no allergies to meds. he states he typically gets gout flares in the elbows and knees. VSS. on exam: edema and mildly increased warmth present to the left knee, no erythema, FROM of the left knee, no bony TTP, neurovascularly intact. no signs of septic joint, no trauma. pt given prescriptions for steroids, colchicine, tylenol with codeine, and indomethacin. advised pt to please take medication as prescribed. do not drive or operate heavy machinery while taking pain medication. follow up with your primary care doctor in the next 2-3 days for reexamination and future management of your gout. return to the emergency room for any new or worsening symptoms. Critical care attestation.: If time is entered above; I have spent that time in minutes in the direct care of this critically ill patient, excluding procedure time. ED Disposition Clinical Impression: Acute gout of left knee Qualifiers: Gout etiology: unspecified cause Qualified Code(s): M10.9 - Gout, unspecified Disposition: TO HOME OR SELFCARE Is pt being admited?: No Does the pt Need Aspirin: No Condition: Stable Instructions: Acute Gouty Arthritis (ED) Additional Instructions: please take medication as prescribed. do not drive or operate heavy machinery while taking pain medication. follow up with your primary care doctor in the next 2-3 days for reexamination and future management of your gout. return to the emergency room for any new or worsening symptoms. Prescriptions: Colchicine 0.6 mg PO ONCE 1 Days #3 capsule Indomethacin 50 mg PO TID 7 Days #21 capsule Prednisone [predniSONE 10 mg (6-Day Pack, 21 Tabs)] 10 mg PO .TAPER #1 tab.ds.pk Acetaminophen/Codeine [Tylenol /Codeine # 3 tab] 1 tab PO Q6H PRN #10 tab PRN Reason: Pain , Severe (7-10) Referrals: PRIMARY CARE, [Primary Care Provider] - 2-3 Days Time of Disposition: 22:06 Print Language: IVORIAN
[2019-06-06 22:17] VITALS: BP 135/85
== END 2019-06-06 22:15 | disposition home or self-care (01) ==
LOC: ED 18:47
DX: M10.9 Gout, unspecified (principal); Z79.899 Other long term (current) drug therapy
CPT/HCPCS: 99282

== ENCOUNTER 2020-06-20 15:56 | Inpatient (IN) | payer OTHER ==
[2020-06-20] MEDS ORDERED: ACETAMINOPHEN 325 MG TAB ONE (16:00)
[2020-06-20] MEDS ORDERED: ACETAMINOPHEN 325 MG TAB PO ONE (16:01)
--- NOTE | 2020-06-20 16:16 | Event Note ---
ED Screening Note ED Screening Note: Patient is a 55-year-old male presents emergency room complaints of shortness of breath that began 2 days ago He has associated dry cough, fever, chills, generalized body aches, fatigue he denies any nausea, vomiting, diarrhea, chest pain, leg swelling He denies any known sick contacts or recent travel Past medical history of gout No medication allergies Non-smoker This initial assessment/diagnostic orders/clinical plan/treatment(s) is/are subject to change based on patients health status, clinical progression and re- assessment by fellow clinical providers in the ED. Further treatment and workup at subsequent clinical providers discretion. Patient/guardian urged not to elope from the ED as their condition may be serious if not clinically assessed and managed. Initial orders include: Labs, chest x-ray
--- NOTE | 2020-06-20 16:40 | XRay Report ---
CHEST 2 VIEWS INDICATION: SOB, cough. COMPARISON: None. FINDINGS: Support devices: None. Heart: Within normal limits. Lungs/Pleura: Mild opacity right mid/lower zone No significant pleural effusion. IMPRESSION: Mild right-sided pneumonia. Signer Name: Cesario Leon MD Signed: 06/20/2020 4:36 PM Workstation Name: [id number]
--- NOTE | 2020-06-20 16:47 | Emergency Department Report ---
ED Shortness of Breath HPI - General Chief Complaint: Dyspnea/Respdistress Stated Complaint: SOB Time Seen by Provider: 06/20/20 16:12 Source: patient Mode of arrival: Ambulatory Limitations: No Limitations - History of Present Illness Initial Comments: 55-year-old male, history of gout, presents to ED with shortness of breath. Patient reports associated chills, cough, loss of taste, body aches. Patient denies any vomiting, diarrhea. Patient reports his fiance is also sick with similar symptoms. Neither have been tested for COVID-19. Patient denies any known contacts who have tested positive for COVID-19. MD Complaint: shortness of breath -: days(s) (3) Severity: moderate Consistency: intermittent Improves With: rest Worsens With: exertion Context: recent URI Associated Symptoms: cough - Related Data Home Oxygen Therapy: No Previous Rx's Medication Instructions Recorded Last Taken Type Clindamycin [Clindamycin CAP] 300 mg PO Q6H #40 capsule 10/15/16 Unknown Rx HYDROcodone/APAP 5-325 [[employer] 1 each PO Q6HR PRN #12 tablet 03/02/17 Unknown Rx 5/325] Naproxen [Naprosyn TAB] 500 mg PO BID PRN #12 tablet 03/02/17 Unknown Rx methylPREDNISolone [Medrol] 4 mg PO QAM #1 tab.ds.pk 03/02/17 Unknown Rx Ibuprofen [Motrin 800 MG tab] 800 mg PO Q8HR PRN #30 tablet 03/12/17 Unknown Rx Amlodipine Besylate [Norvasc] 10 mg PO DAILY #30 tablet 10/09/17 Unknown Rx methylPREDNISolone [Medrol Dose 4 mg PO DAILY #1 packet 10/09/17 Unknown Rx Ezequiel] Colchicine 0.6 mg PO BID #14 tablet 04/29/18 Unknown Rx Ibuprofen [Motrin] 800 mg PO Q8HR PRN #15 tablet 04/29/18 Unknown Rx predniSONE [Prednisone] 10 mg PO QAM 6 Days #1 tab.ds.pk 04/29/18 Unknown Rx Colchicine 0.6 mg PO BID #14 tablet 06/23/18 Unknown Rx Ibuprofen [Motrin] 600 mg PO Q8H PRN #20 tablet 06/23/18 Unknown Rx Colchicine 0.6 mg PO Q2HR #14 capsule 10/18/18 Unknown Rx predniSONE [Deltasone] 50 mg PO QDAY #5 tab 10/18/18 Unknown Rx traMADoL [Ultram] 50 mg PO Q6HR PRN #14 tablet 10/18/18 Unknown Rx Acetaminophen/Codeine [Tylenol 1 tab PO Q6H PRN #10 tab 06/06/19 Unknown Rx /Codeine # 3 tab] Colchicine 0.6 mg PO ONCE 1 Days #3 capsule 06/06/19 Unknown Rx Indomethacin 50 mg PO TID 7 Days #21 capsule 06/06/19 Unknown Rx Prednisone [predniSONE 10 mg 10 mg PO .TAPER #1 tab.ds.pk 06/06/19 Unknown Rx (6-Day Pack, 21 Tabs)] Allergies Allergy/AdvReac Type Severity Reaction Status Date / Time No Known Allergies Allergy Verified 06/20/20 15:58 ED Review of Systems ROS: Stated complaint: SOB Other details as noted in HPI Comment: All other systems reviewed and negative Constitutional: chills Respiratory: cough, shortness of breath Cardiovascular: denies: chest pain Gastrointestinal: denies: vomiting, diarrhea Musculoskeletal: myalgia ED Past Medical Hx - Past Medical History Hx Hypertension: No Hx CVA: No Hx Arthritis: Yes (GOUT) Additional medical history: gout - Social History Smoking Status: Never Smoker Substance Use Type: Alcohol - Medications Home Medications: Home Medications Medication Instructions Recorded Confirmed Last Taken Type Clindamycin [Clindamycin CAP] 300 mg PO Q6H #40 capsule 10/15/16 Unknown Rx HYDROcodone/APAP 5-325 [[employer] 1 each PO Q6HR PRN #12 tablet 03/02/17 Unknown Rx 5/325] Naproxen [Naprosyn TAB] 500 mg PO BID PRN #12 tablet 03/02/17 Unknown Rx methylPREDNISolone [Medrol] 4 mg PO QAM #1 tab.ds.pk 03/02/17 Unknown Rx Ibuprofen [Motrin 800 MG tab] 800 mg PO Q8HR PRN #30 tablet 03/12/17 Unknown Rx Amlodipine Besylate [Norvasc] 10 mg PO DAILY #30 tablet 10/09/17 Unknown Rx methylPREDNISolone [Medrol Dose 4 mg PO DAILY #1 packet 10/09/17 Unknown Rx Ezequiel] Colchicine 0.6 mg PO BID #14 tablet 04/29/18 Unknown Rx Ibuprofen [Motrin] 800 mg PO Q8HR PRN #15 tablet 04/29/18 Unknown Rx predniSONE [Prednisone] 10 mg PO QAM 6 Days #1 tab.ds.pk 04/29/18 Unknown Rx Colchicine 0.6 mg PO BID #14 tablet 06/23/18 Unknown Rx Ibuprofen [Motrin] 600 mg PO Q8H PRN #20 tablet 06/23/18 Unknown Rx Colchicine 0.6 mg PO Q2HR #14 capsule 10/18/18 Unknown Rx predniSONE [Deltasone] 50 mg PO QDAY #5 tab 10/18/18 Unknown Rx traMADoL [Ultram] 50 mg PO Q6HR PRN #14 tablet 10/18/18 Unknown Rx Acetaminophen/Codeine [Tylenol 1 tab PO Q6H PRN #10 tab 06/06/19 Unknown Rx /Codeine # 3 tab] Colchicine 0.6 mg PO ONCE 1 Days #3 capsule 06/06/19 Unknown Rx Indomethacin 50 mg PO TID 7 Days #21 capsule 06/06/19 Unknown Rx Prednisone [predniSONE 10 mg 10 mg PO .TAPER #1 tab.ds.pk 06/06/19 Unknown Rx (6-Day Pack, 21 Tabs)] ED Physical Exam - General Limitations: No Limitations General appearance: alert, in no apparent distress, obese - Head Head exam: Present: atraumatic, normocephalic - Eye Eye exam: Present: normal appearance, EOMI - ENT ENT exam: Present: mucous membranes moist - Neck Neck exam: Present: normal inspection - Respiratory Respiratory exam: Present: normal lung sounds bilaterally - Cardiovascular Cardiovascular Exam: Present: regular rate, normal rhythm - GI/Abdominal GI/Abdominal exam: Present: soft. Absent: distended, tenderness - Extremities Exam Extremities exam: Present: normal inspection - Neurological Exam Neurological exam: Present: alert, oriented X3 - Psychiatric Psychiatric exam: Present: normal affect, normal mood - Skin Skin exam: Present: warm, dry, intact, normal color ED Course Vital Signs 06/20/20 06/20/20 15:59 17:43 Temperature 100.2 F H Pulse Rate 94 H 123 H Respiratory 22 22 Rate Blood Pressure 141/95 [Right] O2 Sat by Pulse 97 93 Oximetry ED Medical Decision Making - Lab Data Result diagrams: 06/20/20 16:13 06/20/20 17:41 - Radiology Data Radiology results: report reviewed, image reviewed - Medical Decision Making 55-year-old obese male presents to ED with possible Covid infection. Pneumonia present on chest x-ray. Patient presents with shortness of breath. Patient very tachypneic and tachycardic with ambulation, with O2 sats dropping to 87%. Patient placed on O2 via nasal cannula. Blood cultures drawn, Rocephin, azithromycin, Decadron given. Will admit to hospitalist, Dr. Cole, for further management. - Differential Diagnosis COVID, pneumonia, CHF Critical care attestation.: If time is entered above; I have spent that time in minutes in the direct care of this critically ill patient, excluding procedure time. ED Disposition Clinical Impression: Suspected 2019 novel coronavirus infection, Pneumonia, Acute hypoxemic respiratory failure Disposition: OP ADMIT IP TO THIS HOSP Is pt being admited?: Yes Condition: Stable Time of Disposition: 17:55
[2020-06-20 16:57] LABS: Alanine Aminotransferase 24 units/L (7-56); Albumin 4.1 g/dL (3.9-5); BUN/Creatinine Ratio 10; Blood Urea Nitrogen 13 mg/dL (9-20); Calcium 8.7 mg/dL (8.4-10.2); Hemolysis Index 2
[2020-06-20 17:12] LABS: Basophils % (Auto) 0.3 % (0.0-1.8); Eosinophils % (Auto) 0.1 % (0.0-4.3); Hematocrit 47.5 % (35.5-45.6); Hemoglobin 15.7 gm/dl (11.8-15.2); Lymphocytes % (Auto) 22.3 % (13.4-35.0); Mean Corpuscular HGB Conc 33 % (32-34); Mean Corpuscular Volume 85 fl (84-94); Monocytes # (Auto) 0.6 K/mm3 (0.0-0.8); Monocytes % (Auto) 14.1 % (0.0-7.3); Platelet Count 134 K/mm3 (140-440); Red Blood Count 5.59 M/mm3 (3.65-5.03); Red Cell Distribution Width 14.9 % (13.2-15.2)
[2020-06-20] MEDS ORDERED: cefTRIAXone/NS 1 GM/50 ML 1 GM/50 ML BAG IV ONE (17:55)
[2020-06-20] MEDS ORDERED: AZITHROMYCIN 250 MG TAB PO ONE (17:56)
[2020-06-20] MEDS ORDERED: DEXAMETHASONE 4 MG TAB PO ONE (17:56)
[2020-06-20] MEDS ORDERED: ALBUTEROL 2.5 MG/3 ML NEBU IH PRN (17:57)
[2020-06-20] MEDS ORDERED: ACETAMINOPHEN 325 MG TAB PO PRN ×2 (17:57)
[2020-06-20] MEDS ORDERED: ONDANSETRON 4 MG/2 ML INJ IV PRN (17:57)
[2020-06-20] MEDS ORDERED: HYDROmorphone 1 MG/1 ML INJ IV PRN (17:57)
--- NOTE | 2020-06-20 17:57 | History and Physical Report ---
History of Present Illness Chief complaint: I cant breathe History of present illness: 55 YO Male with Obesity Hypoventilation Syndrome, OA, Gout presents to ED for evaluation. Patient states that she has been "having problems breathing" for the past 1 week with worsening symptoms over the past 3 days. Patient guillaume [place] fever, chills, shortness of breath, generalized weakness, dry cough, loss of sense of smell, loss of sense of taste, decreased exercise tolerance, malaise, body aches. Patient transported to [facility] via private vehicle for further care and evaluation of the aforementioned symptoms. The patient was seen and evaluated in the emergency department. All lab and imaging studies reviewed. The patient was found to have fever to 101.9 F, tachypnea with a respiratory rate in the 30s, sinus tachycardia with a heart rate in the 130s. Patient tripoding, sitting up in bed, using accessory muscles to breathe. Patient also found to have a pulse oximetry of 87% with exertion which is consistent with acute hypoxemic respiratory failure. Chest x-ray revealed bilateral pneumonia complicated by sepsis. Patient initiated on sepsis protocol as well as coronavirus protocol and admitted to medical floor due to increased risk of worsening symptoms. Patient denies chest pain, palpitations, skin rash, known exposure to COVID-19. No prior admission for review. All medication listed at time of admission has been reconciled. Past History Past Medical History: arthritis, other (See HPI) Past Surgical History: No surgical history, Other (Reviewed) Social history: single. denies: smoking, alcohol abuse, prescription drug abuse Family history: hypertension Medications and Allergies Allergies Allergy/AdvReac Type Severity Reaction Status Date / Time No Known Allergies Allergy Verified 06/20/20 15:58 Home Medications Medication Instructions Recorded Confirmed Last Taken Type Clindamycin [Clindamycin CAP] 300 mg PO Q6H #40 capsule 10/15/16 Unknown Rx HYDROcodone/APAP 5-325 [[place] 1 each PO Q6HR PRN #12 tablet 03/02/17 Unknown Rx 5/325] Naproxen [Naprosyn TAB] 500 mg PO BID PRN #12 tablet 03/02/17 Unknown Rx methylPREDNISolone [Medrol] 4 mg PO QAM #1 tab.ds.pk 03/02/17 Unknown Rx Ibuprofen [Motrin 800 MG tab] 800 mg PO Q8HR PRN #30 tablet 03/12/17 Unknown Rx Amlodipine Besylate [Norvasc] 10 mg PO DAILY #30 tablet 10/09/17 Unknown Rx methylPREDNISolone [Medrol Dose 4 mg PO DAILY #1 packet 10/09/17 Unknown Rx Ezequiel] Colchicine 0.6 mg PO BID #14 tablet 04/29/18 Unknown Rx Ibuprofen [Motrin] 800 mg PO Q8HR PRN #15 tablet 04/29/18 Unknown Rx predniSONE [Prednisone] 10 mg PO QAM 6 Days #1 tab.ds.pk 04/29/18 Unknown Rx Colchicine 0.6 mg PO BID #14 tablet 06/23/18 Unknown Rx Ibuprofen [Motrin] 600 mg PO Q8H PRN #20 tablet 06/23/18 Unknown Rx Colchicine 0.6 mg PO Q2HR #14 capsule 10/18/18 Unknown Rx predniSONE [Deltasone] 50 mg PO QDAY #5 tab 10/18/18 Unknown Rx traMADoL [Ultram] 50 mg PO Q6HR PRN #14 tablet 10/18/18 Unknown Rx Acetaminophen/Codeine [Tylenol 1 tab PO Q6H PRN #10 tab 06/06/19 Unknown Rx /Codeine # 3 tab] Colchicine 0.6 mg PO ONCE 1 Days #3 capsule 06/06/19 Unknown Rx Indomethacin 50 mg PO TID 7 Days #21 capsule 06/06/19 Unknown Rx Prednisone [predniSONE 10 mg 10 mg PO .TAPER #1 tab.ds.pk 06/06/19 Unknown Rx (6-Day Pack, 21 Tabs)] Active Meds: Active Medications Ceftriaxone Sodium (Rocephin/Ns 1 Gm/50 Ml) 1 gm in 50 mls @ 100 mls/hr IV ONCE ONE; Protocol Stop: 06/20/20 18:24 Review of Systems Constitutional: fever, chills, fatigue, weakness, malaise Ears, nose, mouth and throat: other (Loss of sense of smell, loss of sense of taste), no ear pain, no ear discharge, no tinnitis, no decreased hearing Cardiovascular: orthopnea, shortness of breath, dyspnea on exertion, decreased exercise tolerance, no chest pain Respiratory: cough, shortness of breath, dyspnea on exertion, no pleurisy Gastrointestinal: no abdominal pain, no nausea, no vomiting, no diarrhea Genitourinary Male: no hematuria, no flank pain, no discharge, no urinary frequency, no urinary hesitancy Rectal: no pain, no incontinence, no bleeding Musculoskeletal: no neck stiffness, no neck pain, no shooting arm pain, no shooting leg pain, no leg numbness/tingling Integumentary: no rash, no pruritis, no redness, no sores, no wounds, no jaundice Neurological: no paralysis, no weakness, no parathesias, no numbness, no tingling, no seizures, no syncope, no tremors Psychiatric: no anxiety, no sleep disturbances, no hypersomnia, no change in appetite, no change in libido, no suicidal ideation Endocrine: no cold intolerance, no polyphagia, no excessive thirst, no nocturia Hematologic/Lymphatic: no easy bruising, no easy bleeding, no lymphadenopathy Allergic/Immunologic: no persistent infections, no anaphylaxis Exam - Constitutional Vitals: Temp Pulse Resp BP Pulse Ox 100.2 F H 123 H 22 141/95 93 06/20/20 15:59 06/20/20 17:43 06/20/20 17:43 06/20/20 15:59 06/20/20 17:43 General appearance: Present: mild distress, obese - EENT Eyes: Present: PERRL ENT: hearing intact, clear oral mucosa - Neck Neck: Present: supple, normal ROM - Respiratory Respiratory effort: labored, accessory muscle use, stridor Respiratory: bilateral: diminished, rhonchi - Cardiovascular Heart Sounds: Present: S1 & S2. Absent: rub, click - Extremities Extremities: pulses symmetrical, No edema Peripheral Pulses: abnormal (Capillary refill greater than 3.5 seconds) - Abdominal General gastrointestinal: Present: soft, non-tender, non-distended, normal bowel sounds Male genitourinary: Present: normal - Integumentary Integumentary: Present: clear, warm, dry - Musculoskeletal Musculoskeletal: gait normal, strength equal bilaterally - Psychiatric Psychiatric: appropriate mood/affect, intact judgment & insight - Neurologic Neurologic: CNII-XII intact, moves all extremities Results - Labs CBC & Chem 7: 06/20/20 16:13 06/20/20 16:13 Labs: Abnormal lab results 06/20/20 06/20/20 Range/Units 16:13 16:13 RBC 5.59 H (3.65-5.03) M/mm3 Hgb 15.7 H (11.8-15.2) gm/dl Hct 47.5 H (35.5-45.6) % Plt Count 134 L (140-440) K/mm3 [place] % (Auto) 14.1 H (0.0-7.3) % Lymph # (Auto) 1.0 L (1.2-5.4) K/mm3 Sodium 133 L (137-145) mmol/L Chloride 96.8 L (98-107) mmol/L Glucose 136 H (75-100) mg/dL Assessment and Plan - Patient Problems (1) Sepsis Current Visit: Yes Status: Acute Qualifiers: Severe sepsis acute organ dysfunction type: acute respiratory failure Plan to address problem: Sepsis protocol: Chest x-ray, CBC, CMP, urinalysis, blood culture, IV antibiotic therapy, serial lactic acid level, monitor fluid balance, strict I's/O, maintain mean arterial pressure greater than or equal to 65 (2) Obesity hypoventilation syndrome Current Visit: Yes Status: Acute Plan to address problem: Supplemental oxygen, pulse oximetry, nebulizer therapy, outpatient pulmonary follow-up for sleep study. (3) Acute hypoxemic respiratory failure Current Visit: Yes Status: Acute Plan to address problem: Supplemental oxygen, pulse oximetry, chest x-ray, pulmonary toilet, will initiate therapy with high flow submental oxygen if patient is unable to maintain pulse oximetry with supplemental oxygen via nasal cannula. (4) Pneumonia Current Visit: Yes Status: Acute Plan to address problem: Pneumonia protocol: Chest x-ray, CBC, CMP, IV antibiotic therapy, blood culture. Nebulizer therapy, pulse oximetry. (5) Suspected 2019 novel coronavirus infection Current Visit: Yes Status: Acute Plan to address problem: Coronavirus protocol: Coronavirus PCR ordered and pending at time of admission, contact precautions, isolation precaution, IV antibiotic therapy, IV steroid therapy, prone positioning while in bed, pulmonary toilet. (6) DVT prophylaxis Current Visit: Yes Status: Acute Plan to address problem: SCDs bilateral lower extremities while in bed, prophylactic anticoagulation.
[2020-06-20 18:34] LABS: C-Reactive Protein 5.6 mg/dL (0.00-1.30)
[2020-06-21] MEDS: FAMOTIDINE 20 MG TAB PO SCH ×3 (01:10→21:16)
[2020-06-21] MEDS: HEPARIN 5,000 UNIT/1 ML VIAL SUB-Q SCH ×3 (01:11→21:17)
[2020-06-21] MEDS: methylPREDNISolone Sod Succinate 40 MG/1 ML INJ IV SCH ×3 (01:11→13:06)
[2020-06-21] MEDS ORDERED: cefTRIAXone/NS 2 GM/100 ML 2 GM/100 ML BAG IV SCH (06:00)
[2020-06-21 06:40] LABS: Basophils % (Auto) 0.2 % (0.0-1.8); Hematocrit 44.8 % (35.5-45.6); Hemoglobin 14.9 gm/dl (11.8-15.2); Lymphocytes # (Auto) 0.5 K/mm3 (1.2-5.4); Lymphocytes % (Auto) 12.3 % (13.4-35.0); Mean Corpuscular HGB Conc 33 % (32-34); Mean Corpuscular Volume 86 fl (84-94); Monocytes # (Auto) 0.2 K/mm3 (0.0-0.8); Monocytes % (Auto) 5.7 % (0.0-7.3); Platelet Count 130 K/mm3 (140-440); Red Blood Count 5.24 M/mm3 (3.65-5.03); Red Cell Distribution Width 15.1 % (13.2-15.2)
[2020-06-21 06:48] LABS: BUN/Creatinine Ratio 14; Blood Urea Nitrogen 18 mg/dL (9-20); Calcium 8.7 mg/dL (8.4-10.2); Hemolysis Index 8
--- NOTE | 2020-06-21 09:23 | Progress Note ---
Assessment and Plan - Patient Problems (1) Sepsis Current Visit: Yes Status: Acute Qualifiers: Severe sepsis acute organ dysfunction type: acute respiratory failure Plan to address problem: -Presented with tachycardia, tachypnea, febrile, hypoxia and CXR shows pneumonia -06/20 blood cultures x2 pending -06/20 CXR shows mild right-sided pneumonia -Antibiotic therapy -Infectious disease consulted -Monitor blood pressure maintain MAP over 65 (2) Suspected 2019 novel coronavirus infection Current Visit: Yes Status: Acute Plan to address problem: -06/20 COVID-19 PCR pending -06/20 CXR shows mild right-sided pneumonia -Antibiotic therapy -Infectious disease consulted, appreciate recommendations -Steroid therapy -Isolation/droplet precautions -Anticoagulation per protocol -OOB 3 times daily and as needed -Prone to sleep as needed -Supplemental oxygen as needed -Consider pulmonary consult if pulmonary status worsens -Trend inflammatory markers for risk stratification -Pulmonary hygiene (3) Acute hypoxemic respiratory failure Current Visit: Yes Status: Acute Plan to address problem: -Supplemental oxygen as needed -SPO2 monitoring -Pulmonary hygiene -Consider pulmonology consult if worsening (4) Leukopenia Current Visit: Yes Status: Acute Plan to address problem: -06/21 WBC 3.7 -Antibiotic therapy -Supportive care -Trend CBC -Initiate neutropenic precautions when appropriate (5) Hyponatremia Current Visit: Yes Status: Acute Plan to address problem: -Presented with a sodium of 133, 06/21 sodium 132 -Trend BMP -Monitor neuro status (6) Hypochloremia Current Visit: Yes Status: Acute Plan to address problem: -Presented with a chloride of 96.8, 06/21 chloride 96.1. -Trend BMP (7) Obesity hypoventilation syndrome Current Visit: Yes Status: Chronic Plan to address problem: -Supportive care -Supplemental oxygen as needed -Pulmonary hygiene -Outpatient pulmonary follow-up for PFTs -SPO2 monitoring (8) Gout Current Visit: Yes Status: Chronic Plan to address problem: -Restart home indomethacin and colchicin -Supportive care (9) DVT prophylaxis Current Visit: Yes Status: Acute Plan to address problem: -SCDs to bilateral lower extremities while in bed -Lovenox subcu History Interval history: 55 YO Male with OH, OA, Gout who presented to the emergency room with fever, chills, shortness of breath, generalized weakness, dry cough, loss of sense of smell and taste, decreased exercise intolerance, malaise and body aches for the past week with symptoms worsening 3 days to presentation 06/20. Upon presentation to the emergency department patient was febrile, tachypneic, sinus tachycardic, in a tripod position, acute hypoxemic respiratory failure and chest x-ray shows bilateral pneumonia. Patient was initiated on sepsis protocol and admitted to the hospital service as a COVID-19 PUI. Infectious disease was consulted. At the time of my examination patient is on 2 L nasal cannula and gets short of breath with conversation. Patient states that he does not get short of breath with ambulation and states that he feels much better. Infectious disease consult pending. Patient remains hyponatremic, hypochloremic, on steroid therapy and antibiotic therapy for his procalcitonin is less than 0.05. We will await infectious disease input before discontinuing antibiotics and he has Solu-Medrol was changed to dexamethasone 6 mg daily. Hospitalist Physical - Constitutional Vitals: Temp Pulse Resp BP Pulse Ox 98.9 F 95 H 18 119/83 96 06/21/20 05:17 06/21/20 05:17 06/21/20 08:00 06/21/20 05:17 06/21/20 08:36 General appearance: Present: no acute distress, obese - EENT Eyes: Present: PERRL, EOM intact ENT: hearing intact, clear oral mucosa, dentition normal - Neck Neck: Present: normal ROM - Respiratory Respiratory effort: normal - Cardiovascular Rhythm: regular - Extremities Extremities: no ischemia, pulses intact, pulses symmetrical, No edema, normal temperature, normal color, Full ROM Peripheral Pulses: within normal limits - Abdominal General gastrointestinal: soft, non-tender, non-distended, normal bowel sounds - Integumentary Integumentary: Present: clear, warm, dry - Psychiatric Psychiatric: appropriate mood/affect, cooperative - Neurologic Neurologic: CNII-XII intact, no focal deficits, moves all extremities - Allied Health Allied health notes reviewed: nursing Results - Labs CBC & Chem 7: 06/21/20 05:04 06/21/20 05:04 Labs: Laboratory Last Values WBC 3.7 K/mm3 (4.5-11.0) L 06/21/20 05:04 RBC 5.24 M/mm3 (3.65-5.03) H 06/21/20 05:04 Hgb 14.9 gm/dl (11.8-15.2) 06/21/20 05:04 Hct 44.8 % (35.5-45.6) 06/21/20 05:04 MCV 86 fl (84-94) 06/21/20 05:04 MCH 29 pg (28-32) 06/21/20 05:04 MCHC 33 % (32-34) 06/21/20 05:04 RDW 15.1 % (13.2-15.2) 06/21/20 05:04 Plt Count 130 K/mm3 (140-440) L 06/21/20 05:04 Lymph % (Auto) 12.3 % (13.4-35.0) L 06/21/20 05:04 [place] % (Auto) 5.7 % (0.0-7.3) 06/21/20 05:04 Eos % (Auto) 0.0 % (0.0-4.3) 06/21/20 05:04 Baso % (Auto) 0.2 % (0.0-1.8) 06/21/20 05:04 Lymph # (Auto) 0.5 K/mm3 (1.2-5.4) L 06/21/20 05:04 [place] # (Auto) 0.2 K/mm3 (0.0-0.8) 06/21/20 05:04 Eos # (Auto) 0.0 K/mm3 (0.0-0.4) 06/21/20 05:04 Baso # (Auto) 0.0 K/mm3 (0.0-0.1) 06/21/20 05:04 Seg Neutrophils % 81.8 % (40.0-70.0) H 06/21/20 05:04 Seg Neutrophils # 3.0 K/mm3 (1.8-7.7) 06/21/20 05:04 D-Dimer 205.83 ng/mlDDU (0-234) 06/20/20 17:41 Sodium 132 mmol/L (137-145) L 06/21/20 05:04 Potassium 4.6 mmol/L (3.6-5.0) D 06/21/20 05:04 Chloride 96.1 mmol/L (98-107) L 06/21/20 05:04 Carbon Dioxide 22 mmol/L (22-30) 06/21/20 05:04 Anion Gap 19 mmol/L 06/21/20 05:04 BUN 18 mg/dL (9-20) 06/21/20 05:04 Creatinine 1.3 mg/dL (0.8-1.3) 06/21/20 05:04 Estimated GFR > 60 ml/min 06/21/20 05:04 BUN/Creatinine Ratio 14 % 06/21/20 05:04 Glucose 188 mg/dL (75-100) H 06/21/20 05:04 Lactic Acid 1.30 mmol/L (0.7-2.0) 06/21/20 05:04 Calcium 8.7 mg/dL (8.4-10.2) 06/21/20 05:04 Ferritin 515.6 ng/mL (30.0-300.0) H 06/20/20 17:41 Total Bilirubin 0.60 mg/dL (0.1-1.2) 06/20/20 16:13 AST 29 units/L (5-40) 06/20/20 16:13 ALT 24 units/L (7-56) 06/20/20 16:13 Alkaline Phosphatase 46 units/L (35-129) 06/20/20 16:13 Lactate Dehydrogenase 191 units/L (91-180) H 06/20/20 17:41 C-Reactive Protein 5.60 mg/dL (0.00-1.30) H 06/20/20 17:41 Total Protein 7.5 g/dL (6.3-8.2) 06/20/20 16:13 Albumin 4.1 g/dL (3.9-5) 06/20/20 16:13 Albumin/Globulin Ratio 1.2 % 06/20/20 16:13 Microbiology: Microbiology 06/20/20 18:14 Peripheral/Venous Blood Culture - Preliminary Culture in Progress 06/20/20 18:11 Peripheral/Venous Blood Culture - Preliminary Culture in Progress [place]/IV: Voiding Method Toilet IV Catheter Type [Left Hand] INT / Saline Lock Active Medications - Current Medications Current Medications: Generic Name Dose Route Start Last Admin Trade Name Freq PRN Reason Stop Dose Admin Acetaminophen 650 mg 06/20/20 17:57 Acetaminophen 325 Mg Tab PO Q4H PRN Pain MILD(1-3)/Fever >100.5/VALLEJO Albuterol 2.5 mg 06/20/20 17:57 Albuterol 2.5 Mg/3 Ml Nebu IH Q4HRT PRN Shortness Of Breath Famotidine 20 mg 06/20/20 22:00 06/21/20 01:10 Famotidine 20 Mg Tab PO 20 mg BID PATRICA Administration Heparin Sodium (Porcine) 5,000 unit 06/20/20 22:00 06/21/20 01:11 Heparin 5,000 Unit/1 Ml Vial SUB-Q 5,000 unit Q12HR PATRICA Administration Hydromorphone HCl 0.25 mg 06/20/20 17:57 06/21/20 01:08 Hydromorphone 1 Mg/1 Ml Inj IV 0.25 mg Q4H PRN Administration Pain, Moderate (4-6) Ceftriaxone Sodium 2 gm in 100 mls @ 200 mls/hr 06/21/20 06:00 06/21/20 05:23 Rocephin/Ns 2 Gm/100 Ml IV 200 mls/hr Q24H PATRICA Administration Protocol Azithromycin 500 mg/ Sodium 250 mls @ 250 mls/hr 06/21/20 18:00 Chloride IV Q24H PATRICA Protocol Methylprednisolone Sodium Succinate 40 mg 06/20/20 22:00 06/21/20 05:23 Methylprednisolone Sod Succinate 40 Mg/1 Ml Inj IV 40 mg Q8HR PATRICA Administration Ondansetron HCl 4 mg 06/20/20 17:57 Ondansetron 4 Mg/2 Ml Inj IV Q8H PRN Nausea And Vomiting Sodium Chloride 10 ml 06/20/20 22:00 06/21/20 01:11 Sodium Chloride 0.9% 10 Ml Flush Syringe IV 10 ml BID PATRICA Administration Sodium Chloride 10 ml 06/20/20 17:57 Sodium Chloride 0.9% 10 Ml Flush Syringe IV PRN PRN LINE FLUSH
[2020-06-21] MEDS: COLCHICINE 0.6 MG TAB PO SCH ×2 (09:37→21:17)
[2020-06-21] MEDS: INDOMETHACIN 25 MG CAP PO SCH ×2 (13:06→21:16)
[2020-06-21] MEDS ORDERED: INDOMETHACIN 50 MG PO SCH (14:00)
--- NOTE | 2020-06-21 15:04 | Consultation ---
History of Present Illness - Reason for Consult Consult date: 06/21/20 - History of Present Illness 55-year-old man past medical history morbid obesity, obesity hypoventilation, osteoarthritis, gout presented to hospital with shortness of breath. This began approximately 1 week prior to admission and has been acutely worse for the past 3 days. He also complains of associated fevers, chills, cough, typical Covid symptoms. Found to be febrile, tachypneic he was noted to be hypoxic on admi ssion. He denies any known exposures to Covid. Afebrile since admission. Currently on ceftriaxone and azithromycin. White count 3.7. Blood cultures currently pending. Covid positive. Normal pro calcitonin, normal renal function. Currently on 2 L nasal cannula. Imaging personally reviewed: Chest x-ray: Mild right-sided pneumonia. Review of systems: Deferred due to PPE conservation strategy. Past History Past Medical History: arthritis, other (See HPI) Past Surgical History: No surgical history, Other (Reviewed) Social history: single. denies: smoking, alcohol abuse, prescription drug abuse Family history: hypertension Medications and Allergies Allergies Allergy/AdvReac Type Severity Reaction Status Date / Time No Known Allergies Allergy Verified 06/20/20 15:58 Home Medications Medication Instructions Recorded Confirmed Last Taken Type Clindamycin [Clindamycin CAP] 300 mg PO Q6H #40 capsule 10/15/16 Unknown Rx HYDROcodone/APAP 5-325 [[place] 1 each PO Q6HR PRN #12 tablet 03/02/17 Unknown Rx 5/325] Naproxen [Naprosyn TAB] 500 mg PO BID PRN #12 tablet 03/02/17 Unknown Rx methylPREDNISolone [Medrol] 4 mg PO QAM #1 tab.ds.pk 03/02/17 Unknown Rx Ibuprofen [Motrin 800 MG tab] 800 mg PO Q8HR PRN #30 tablet 03/12/17 Unknown Rx Amlodipine Besylate [Norvasc] 10 mg PO DAILY #30 tablet 10/09/17 Unknown Rx methylPREDNISolone [Medrol Dose 4 mg PO DAILY #1 packet 10/09/17 Unknown Rx Ezequiel] Colchicine 0.6 mg PO BID #14 tablet 04/29/18 Unknown Rx Ibuprofen [Motrin] 800 mg PO Q8HR PRN #15 tablet 04/29/18 Unknown Rx predniSONE [Prednisone] 10 mg PO QAM 6 Days #1 tab.ds.pk 04/29/18 Unknown Rx Colchicine 0.6 mg PO BID #14 tablet 06/23/18 Unknown Rx Ibuprofen [Motrin] 600 mg PO Q8H PRN #20 tablet 06/23/18 Unknown Rx Colchicine 0.6 mg PO Q2HR #14 capsule 10/18/18 Unknown Rx predniSONE [Deltasone] 50 mg PO QDAY #5 tab 10/18/18 Unknown Rx traMADoL [Ultram] 50 mg PO Q6HR PRN #14 tablet 10/18/18 Unknown Rx Acetaminophen/Codeine [Tylenol 1 tab PO Q6H PRN #10 tab 06/06/19 Unknown Rx /Codeine # 3 tab] Colchicine 0.6 mg PO ONCE 1 Days #3 capsule 06/06/19 Unknown Rx Indomethacin 50 mg PO TID 7 Days #21 capsule 06/06/19 Unknown Rx Prednisone [predniSONE 10 mg 10 mg PO .TAPER #1 tab.ds.pk 06/06/19 Unknown Rx (6-Day Pack, 21 Tabs)] Active Meds: Active Medications Acetaminophen (Acetaminophen 325 Mg Tab) 650 mg PO Q4H PRN PRN Reason: Pain MILD(1-3)/Fever >100.5/[place] Albuterol (Albuterol 2.5 Mg/3 Ml Nebu) 2.5 mg IH Q4HRT PRN PRN Reason: Shortness Of Breath Azithromycin (Azithromycin 250 Mg Tab) 500 mg PO QPM [facility] Stop: 06/24/20 23:00 Colchicine (Colchicine 0.6 Mg Tab) 0.6 mg PO BID [facility] Last Admin: 06/21/20 09:37 Dose: 0.6 mg Documented by: Dexamethasone (Dexamethasone 4 Mg Tab) 6 mg PO DAILY [facility] Stop: 06/30/20 10:01 Famotidine (Famotidine 20 Mg Tab) 20 mg PO BID [facility] Last Admin: 06/21/20 09:34 Dose: 20 mg Documented by: Heparin Sodium (Porcine) (Heparin 5,000 Unit/1 Ml Vial) 5,000 unit SUB-Q Q12HR [facility] Last Admin: 06/21/20 09:34 Dose: 5,000 unit Documented by: Hydromorphone HCl (Hydromorphone 1 Mg/1 Ml Inj) 0.25 mg IV Q4H PRN PRN Reason: Pain, Moderate (4-6) Last Admin: 06/21/20 01:08 Dose: 0.25 mg Documented by: Ceftriaxone Sodium (Rocephin/Ns 2 Gm/100 Ml) 2 gm in 100 mls @ 200 mls/hr IV Q24H [facility]; Protocol Last Admin: 06/21/20 05:23 Dose: 200 mls/hr Documented by: Azithromycin 500 mg/ Sodium (Chloride) 250 mls @ 250 mls/hr IV Q24H [facility]; Protocol Stop: 06/21/20 23:00 Indomethacin (Indomethacin 25 Mg Cap) 50 mg PO Q8HR [facility] Last Admin: 06/21/20 13:06 Dose: 50 mg Documented by: Ondansetron HCl (Ondansetron 4 Mg/2 Ml Inj) 4 mg IV Q8H PRN PRN Reason: Nausea And Vomiting Sodium Chloride (Sodium Chloride 0.9% 10 Ml Flush Syringe) 10 ml IV BID [facility] Last Admin: 06/21/20 09:38 Dose: 10 ml Documented by: Sodium Chloride (Sodium Chloride 0.9% 10 Ml Flush Syringe) 10 ml IV PRN PRN PRN Reason: LINE FLUSH Physical Examination - Physical Exam Narrative exam: Physical exam deferred due to PPE conservation strategy. Please refer to primary team's note. - Constitutional Vitals: Vital Signs Temp Pulse Resp BP Pulse Ox 98.9 F 95 H 18 119/83 96 06/21/20 05:17 06/21/20 05:17 06/21/20 08:00 06/21/20 05:17 06/21/20 08:36 Temperature -Last 24 Hours Temperature 98.9 F Temperature 99.7 F Temperature 100.2 F Results - Labs CBC & Chem 7: 06/21/20 05:04 06/21/20 05:04 Labs: Abnormal lab results 06/20/20 06/20/20 06/20/20 Range/Units 16:13 16:13 17:41 WBC (4.5-11.0) K/mm3 RBC 5.59 H (3.65-5.03) M/mm3 Hgb 15.7 H (11.8-15.2) gm/dl Hct 47.5 H (35.5-45.6) % Plt Count 134 L (140-440) K/mm3 Lymph % (Auto) (13.4-35.0) % [place] % (Auto) 14.1 H (0.0-7.3) % Lymph # (Auto) 1.0 L (1.2-5.4) K/mm3 Seg Neutrophils % (40.0-70.0) % Sodium 133 L (137-145) mmol/L Chloride 96.8 L (98-107) mmol/L Glucose 136 H (75-100) mg/dL Ferritin 515.6 H (30.0-300.0) ng/mL Lactate Dehydrogenase (91-180) units/L C-Reactive Protein (0.00-1.30) mg/dL Coronavirus (PCR) (Negative) 06/20/20 06/21/20 06/21/20 Range/Units 17:41 05:04 05:04 WBC 3.7 L (4.5-11.0) K/mm3 RBC 5.24 H (3.65-5.03) M/mm3 Hgb (11.8-15.2) gm/dl Hct (35.5-45.6) % Plt Count 130 L (140-440) K/mm3 Lymph % (Auto) 12.3 L (13.4-35.0) % [place] % (Auto) (0.0-7.3) % Lymph # (Auto) 0.5 L (1.2-5.4) K/mm3 Seg Neutrophils % 81.8 H (40.0-70.0) % Sodium 132 L (137-145) mmol/L Chloride 96.1 L (98-107) mmol/L Glucose 130 H 188 H (75-100) mg/dL Ferritin (30.0-300.0) ng/mL Lactate Dehydrogenase 191 H (91-180) units/L C-Reactive Protein 5.60 H (0.00-1.30) mg/dL Coronavirus (PCR) (Negative) 06/21/20 Range/Units Unknown WBC (4.5-11.0) K/mm3 RBC (3.65-5.03) M/mm3 Hgb (11.8-15.2) gm/dl Hct (35.5-45.6) % Plt Count (140-440) K/mm3 Lymph % (Auto) (13.4-35.0) % [place] % (Auto) (0.0-7.3) % Lymph # (Auto) (1.2-5.4) K/mm3 Seg Neutrophils % (40.0-70.0) % Sodium (137-145) mmol/L Chloride (98-107) mmol/L Glucose (75-100) mg/dL Ferritin (30.0-300.0) ng/mL Lactate Dehydrogenase (91-180) units/L C-Reactive Protein (0.00-1.30) mg/dL Coronavirus (PCR) Positive A (Negative) Assessment and Plan Cultures: Blood culture pending COVID positive A/P:55-year-old man past medical history morbid obesity, obesity hy poventilation, osteoarthritis, gout admitted with COVID-19 pneumonia #Severe COVID-19 pneumonia: Patient presented with a week of symptoms, chest x- ray with right-sided pneumonia. Inflammatory markers elevated #Acute hypoxemic respiratory failure: Likely secondary to COVID-19 infection. Currently on 2L NC #Morbid obesity: Associated with worse COVID-19 outcomes. Recs: -Dexamethasone 6 mg IV/PO daily for 10 days -Stop antibiotics due to normal procalcitonin -Start remdesivir day 1 of 5. Monitor renal and hepatic function while receiving. -Coagulation per hospital protocol -Proning as able Thank you for the consult, we will continue to follow. MD Elma Espinoza [facility] O: [phone] F: [phone]
[2020-06-21] MEDS ORDERED: REMDESIVIR 200 MG in SODIUM CHLORIDE 0.9% 250ML 250 ML IV ONE (17:00)
[2020-06-21] MEDS ORDERED: REMDESIVIR 100 MG VIAL IV ONE (17:00)
[2020-06-21] MEDS ORDERED: SODIUM CHLORIDE 0.9% 50 ML IVPB IV SCH (17:30)
[2020-06-21] MEDS ORDERED: AZITHROMYCIN 500 MG in SODIUM CHLORIDE 0.9% 250ML 250 ML IV SCH (18:00)
[2020-06-22] MEDS: INDOMETHACIN 25 MG CAP PO SCH ×2 (05:54→15:20)
[2020-06-22 07:06] LABS: Alanine Aminotransferase 26 units/L (7-56); Albumin 3.9 g/dL (3.9-5); BUN/Creatinine Ratio 16; Blood Urea Nitrogen 23 mg/dL (9-20); Calcium 8.7 mg/dL (8.4-10.2); Hemolysis Index 5
[2020-06-22 07:07] LABS: Bilirubin,Direct < 0.2 mg/dL (0-0.2)
[2020-06-22] MEDS: HEPARIN 5,000 UNIT/1 ML VIAL SUB-Q SCH (09:38)
[2020-06-22] MEDS: FAMOTIDINE 20 MG TAB PO SCH (09:39)
[2020-06-22] MEDS: COLCHICINE 0.6 MG TAB PO SCH (09:39)
[2020-06-22] MEDS ORDERED: DEXAMETHASONE 4 MG TAB PO SCH (10:00)
--- NOTE | 2020-06-22 16:00 | Progress Note ---
Assessment and Plan Cultures: Blood culture pending COVID positive A/P:55-year-old man past medical history morbid obesity, obesity hypoventilation, osteoarthritis, gout admitted with COVID-19 pneumonia #Severe COVID-19 pneumonia: Patient presented with a week of symptoms, chest x- ray with right-sided pneumonia. Inflammatory markers elevated #Acute hypoxemic respiratory failure: Likely secondary to COVID-19 infection. Currently on 2L NC #Morbid obesity: Associated with worse COVID-19 outcomes. Recs: -Dexamethasone 6 mg IV/PO daily for 10 days -Start remdesivir day 2 of 5. Monitor renal and hepatic function while receiving. -Coagulation per hospital protocol -Proning as able Okay to discharge when improved. No need to complete 5 days of remdesivir if improved. Consider 6-minute walk test prior to discharge. Infectious disease will sign off. Call with questions. Carlos Aparicio MD [facility] O: [phone] F: [phone] Subjective Date of service: 06/22/20 Interval history: Afebrile, leukopenic. Currently on 2 L nasal cannula Objective - Exam Narrative Exam: Physical exam deferred due to PPE conservation strategy. Please refer to primary team's note. - Constitutional Vitals: Vital Signs Temp Pulse Resp BP Pulse Ox 99.9 F H 92 H 18 116/79 93 06/22/20 11:28 06/22/20 11:28 06/22/20 11:28 06/22/20 11:28 06/22/20 11:28 Temperature -Last 24 Hours Temperature 99.9 F Temperature 98.9 F Temperature 98.0 F Temperature 97.8 F - Labs CBC & Chem 7: 06/21/20 05:04 06/22/20 04:52 Labs: Abnormal lab results 06/22/20 Range/Units 04:52 BUN 23 H (9-20) mg/dL Creatinine 1.4 H (0.8-1.3) mg/dL Glucose 131 H (75-100) mg/dL
--- NOTE | 2020-06-22 16:16 | Discharge Summary ---
Providers - Providers Date of Admission: 06/20/20 21:35 Date of discharge: 06/22/20 Attending physician: MIKA MERCADO 06/21/20 09:30 Consult to Physician [CONS] Routine Comment: Consulting Provider: ZANDER ALVARADO Physician Instructions: Reason For Exam: covid pui Primary care physician: [employer] Hospitalization Condition: Stable Hospital course: 55 YO Male with OHS, OA, Gout who presented to the emergency room with fever, chills, shortness of breath, generalized weakness, dry cough, loss of sense of smell and taste, decreased exercise intolerance, malaise and body aches for the past week with symptoms worsening 3 days to presentation 06/20. Upon presentation to the emergency department patient was febrile, tachypneic, sinus tachycardic, in a tripod position, acute hypoxemic respiratory failure and chest x-ray shows bilateral pneumonia. Patient was initiated on sepsis protocol and admitted to the hospital service as a COVID-19 PUI. Infectious disease was consulted. During stay patient required supplemental oxygenation and therefore he was started on remdesivir therapy by infectious disease. His antibiotic therapy was also stopped by infectious disease given normal procalcitonin level. Today the patient states that he feels much better and is on room air. Ambulation SPO2 was 93% therefore he does not qualify for home oxygen. He will be discharged with steroid therapy to complete his 10-day course. He will also be discharged with Eliquis for 7 days. Patient will need to follow-up with his primary care physician within 1 to 2 weeks of discharge. It is recommended that the patient follows up with pulmonology to obtain pulmonary function tests and sleep study to screen for obstructive sleep apnea. Assessment and Plan - Patient Problems (1) Sepsis Current Visit: Yes Status: Acute Qualifiers: Severe sepsis acute organ dysfunction type: acute respiratory failure Plan to address problem: -Presented with tachycardia, tachypnea, febrile, hypoxia and CXR shows pneumonia -06/20 blood cultures x2 pending -06/20 CXR shows mild right-sided pneumonia -S/p antibiotic therapy -Infectious disease consulted appreciate recommendations (2) Pneumonia secondary to 2019 novel coronavirus infection Current Visit: Yes Status: Acute Plan to address problem: -06/20 COVID-19 PCR positive -06/20 CXR shows mild right-sided pneumonia -S/p antibiotic therapy -Infectious disease consulted, appreciate recommendations -You will be discharged with steroid therapy to complete your 10-day course -Isolation/droplet precautions -Continue pulmonary hygiene -You will be discharged with Eliquis 2.5 mg twice daily for 7 days for prophylactic anticoagulation (3) Acute hypoxemic respiratory failure Current Visit: Yes Status: Resolved Plan to address problem: -Patient was hypoxic on room air in the emergency department and was in respiratory distress -06/22 ambulatory SPO2 93% -Does not qualify for home oxygen (4) Leukopenia Current Visit: Yes Status: Acute Plan to address problem: -06/21 WBC 3.7 -S/p antibiotic therapy -Secondary to COVID-19 infection (5) Hyponatremia Current Visit: Yes Status: Resolved Plan to address problem: -Presented with a sodium of 133, 06/21 sodium 132, 06/22 sodium 137 (6) Hypochloremia Current Visit: Yes Status: Resolved Plan to address problem: -Presented with a chloride of 96.8, 06/21 chloride 96.1, 06/22 chloride 99.1 (7) Obesity hypoventilation syndrome Current Visit: Yes Status: Chronic Plan to address problem: -Supportive care -Outpatient pulmonology follow-up for pulmonary function test (8) Gout Current Visit: Yes Status: Chronic Plan to address problem: -Continue home indomethacin and colchicin (9) DVT prophylaxis Current Visit: Yes Status: Acute Plan to address problem: -Eliquis 2.5 mg twice daily for 7 days Disposition: DC-01 TO HOME OR SELFCARE Time spent for discharge: 35 Core Measure Documentation - Palliative Care Palliative Care/ Comfort Measures: Not Applicable - Core Measures Any of the following diagnoses?: none Exam - Constitutional Vitals: Temp Pulse Resp BP Pulse Ox 99.9 F H 92 H 18 116/79 93 06/22/20 11:28 06/22/20 11:28 06/22/20 11:28 06/22/20 11:28 06/22/20 11:28 General appearance: Present: no acute distress - EENT Eyes: Present: PERRL, EOM intact ENT: hearing intact, clear oral mucosa, dentition normal - Neck Neck: Present: supple, normal ROM - Respiratory Respiratory effort: normal Respiratory: bilateral: CTA, diminished - Cardiovascular Rhythm: regular Heart Sounds: Present: S1 & S2. Absent: systolic murmur, diastolic murmur - Extremities Extremities: no ischemia, pulses intact, pulses symmetrical, No edema, normal temperature, normal color, Full ROM Peripheral Pulses: within normal limits - Abdominal General gastrointestinal: Present: soft, non-tender, non-distended, normal bowel sounds - Integumentary Integumentary: Present: clear, warm, dry - Musculoskeletal Musculoskeletal: strength equal bilaterally - Psychiatric Psychiatric: appropriate mood/affect, cooperative - Neurologic Neurologic: CNII-XII intact, no focal deficits, moves all extremities - Allied Health Allied health notes reviewed: nursing Plan Activity: advance as tolerated Diet: low fat, low cholesterol Additional Instructions: Present to nearest emergency department or contact primary care physician if you experience worsening symptoms. Follow the COVID- 19 guidelines set forth by the CDC and contained in the booklet to RN to provide you. You will be discharged with steroid therapy to complete your 10-day course. It is recommended that you follow-up with pulmonology to obtained outpatient pulmonary function tests and a sleep study to screen for obstructive sleep apnea. Follow-up with your primary care physician within 1 to 2 weeks of discharge. Follow up with: PRIMARY CAREMD [Primary Care Provider] - 3-5 Days [facility] [Outside] - 7 Days [facility] [Outside] - 7 Days [facility] [Outside] - [address] [facility] [Outside] - 7 Days [facility] [Outside] - 7 Days [facility] [Outside] - 7 Days ELIE ADAMS MD [Staff Physician] - 7 Days CASSY SLOAN MD [Staff Physician] - 7 Days Prescriptions: Colchicine [Colcrys] 0.6 mg PO BID #60 tablet dexAMETHasone [Decadron] 6 mg PO DAILY #8 tablet Apixaban [Eliquis] 2.5 mg PO BID 7 Days #14 tablet Indomethacin 50 mg PO TID 7 Days #21 capsule traMADoL [Ultram 50 MG tab] 50 mg PO Q6HR PRN #14 tablet PRN Reason: Pain
[2020-06-22 17:56] VITALS: BP 114/80
[2020-06-22] MEDS ORDERED: AZITHROMYCIN 250 MG TAB PO SCH (18:00)
[2020-06-22] MEDS ORDERED: REMDESIVIR 100 MG in SODIUM CHLORIDE 0.9% 250ML 250 ML IV SCH (21:00)
== END 2020-06-22 18:39 | disposition home or self-care (01) | DRG 871 ==
LOC: ED 15:56 → 3A 21:35
PROVIDERS: ADMIT Internal Medicine; ATTEND Internal Medicine
PROC: XW033E5 Introduction of Remdesivir Anti-infective into Peripheral Vein, Percutaneous Approach, New Technology Group 5 (ICD-10-PCS; principal; 2020-06-21)
DX: A41.89 Other specified sepsis (principal); U07.1 COVID-19; J96.01 Acute respiratory failure with hypoxia; J12.82 Pneumonia due to coronavirus disease 2019; E66.2 Morbid (severe) obesity with alveolar hypoventilation; Z68.41 Body mass index [BMI] 40.0-44.9, adult; E87.1 Hypo-osmolality and hyponatremia; M10.9 Gout, unspecified; M19.90 Unspecified osteoarthritis, unspecified site; E87.8 Other disorders of electrolyte and fluid balance, not elsewhere classified; R65.20 Severe sepsis without septic shock; Z79.899 Other long term (current) drug therapy; Z79.51 Long term (current) use of inhaled steroids; Z71.3 Dietary counseling and surveillance; Z82.49 Family history of ischemic heart disease and other diseases of the circulatory system
CPT/HCPCS: 36415; 71046; 80048; 80053; 80076; 82140; 82728; 82947; 83615; 84145; 85025; 85379; 86140; 87040; 94760; G0378; J0696; J1170; J1644; J2920; J8540; U0003